=== PATIENT | male | born 1970 | race Caucasian/White ===

== ENCOUNTER → 2024-08-02 | Outpatient (CLI) | payer BC ==
[2024-08-02 14:20] VITALS: BP 171/102; PULSE 80; RESP 16; TEMP 98
--- NOTE | 2024-08-02 14:59 | P.SLEEP ---
History of Present Illness H&P Date: 08/02/24 Patient is a 53-year-old morbidly obese male patient is coming in for sleep apnea evaluation. The patient has works swing shifts for a total of 28 years working at the [employer]. This has disrupted his sleep pattern and the patient reports to have poor sleep quality over many years. 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 He goes to bed at 9 PM and wakes at 4:15 AM in the morning. On weekends, he sleeps till 8 AM in the morning. His has noted very loud snoring and he has also been noted to pauses breathing during sleep. The patient states that she wakes up tired and he feels fatigued and sleepy throu ghout the day. His current [place] score is at 10. No history of any motor vehicle accidents because of feeling drowsy or sleepy. Over the past 10 years, he has gained around 30 pounds. He has taken trazodone for many years for sleep induction and this medication has helped him quite a bit while he was doing swing shifts. He has maintained himself on trazodone. He has hypertension, acid reflux, chronic back pain and hyperlipidemia and chronic allergic rhinitis. He is a mouth breather. He has dry mouth in the morning when he wakes up. No sleep paralysis. No hallucinations. No cataplexy. No restlessness in lower extremities. No grinding of the teeth. No nocturnal chest pain or heartburn. He wakes up once or twice in the middle of the night to go to the bathroom. At other times, he wakes up for no obvious reasons. He drinks 12 to 20 ounce coffee during the day. Social alcohol drinker. Occasionally smokes marijuana. He is a non-smoker. No history of any cardiovascular disease. However, his father has at a young age from cardiac complications. His blood pressure today was noted to be elevated. No headaches. No previous history of stroke. No congestion heart failure. No atrial fibrillation. No chronic lung disease. Review of Systems Constitutional: Reports daytime sleepiness, Reports fatigue, Reports weight gain Eyes: denies as per HPI, denies blurred vision, denies bulging eye, denies decreased vision, denies diplopia, denies discharge, denies dry eye, denies irritation, denies itching, denies pain, denies photophobia, denies loss of peripheral vision, denies loss of vision, denies tunnel vision/blind spots Ears: deny: decreased hearing, ear discharge, earache, tinnitus Ears, nose, mouth and throat: Reports as per HPI Breasts: absent: as per HPI, gynecomastia Cardiovascular: Reports as per HPI Respiratory: Reports snoring Gastrointestinal: Reports as per HPI Genitourinary: Reports as per HPI Musculoskeletal: Reports low back pain Musculoskeletal: absent: ankle pain, ankle stiffness, ankle swelling, as per HPI, elbow pain, elbow stiffness, elbow swelling, foot pain, foot stiffness, foot swelling, hand pain, hand stiffness, hand swelling, hip pain, hip stiffness, hip swelling, knee pain, knee stiffness, knee swelling, shoulder pain, shoulder stiffness, shoulder swelling, wrist pain, wrist stiffness, wrist swelling Integumentary: Reports as per HPI Neurological: Reports as per HPI Psychiatric: Reports change in sleep habits, Reports hypersomnia, Reports sleep disturbances Endocrine: Reports as per HPI, Reports fatigue Hematologic/Lymphatic: Reports as per HPI Allergic/Immunologic: Reports allergic rhinitis Past Medical History Past Medical History: GERD/Reflux, Hyperlipidemia, Hypertension History of Any Multi-Drug Resistant Organisms: None Reported Past Anesthesia/Blood Transfusion Reactions: No Reported Reaction Past Psychological History: No Psychological Hx Reported Smoking Status: Never smoker Past Alcohol Use History: Occasional Past Drug Use History: Marijuana - Past Family History Mother Family Medical History: Hyperlipidemia, Hypertension Father Family Medical History: Coronary Artery Disease (CAD) Brother(s) Family Medical History: Hyperlipidemia Sister(s) Family Medical History: Hyperlipidemia Medications and Allergies Home Medications Medication Instructions Recorded Confirmed Type Atorvastatin [Lipitor] 10 mg PO DAILY 08/02/24 08/02/24 History Omeprazole 20 mg PO DAILY 08/02/24 08/02/24 History traZODone HCL 100 mg PO HS 08/02/24 08/02/24 History Physical Exam Vitals: Vital Signs Temp Pulse Resp BP Pulse Ox 08/02/24 14:19 98 F 80 16 171/102 97 Intake and Output 08/01/24 08/02/24 08/02/24 22:59 06:59 14:59 Other: Weight 138.346 kg The patient appeared well nourished and normally developed. Vital signs as documented. Patient is obese with a BMI of 39.7. Neck size is 17.5 inches. Current [place] score at that time. Head exam is unremarkable. No scleral icterus or corneal arcus noted. Neck is without jugular venous distension, thyromegaly, or carotid bruits. Carotid upstrokes are brisk bilaterally. Mallampati class IV with crowding of the posterior pharynx. No overbite. Lungs are clear to auscultation and percussion. Cardiac exam reveals the PMI to be normally sized and situated. Rhythm is regular. First and second heart sounds normal. No murmurs, rubs or gallops. Abdominal exam reveals normal bowel sounds, no masses, no organomegaly and no aortic enlargement. Extremities are nonedematous and both femoral and pedal pulses are normal. Examination of the skin revealed no evidence of significant rashes, suspicious appearing nevi or other concerning lesions. Neurologically, the patient is awake and alert and the patient does not have any focal neurological deficit. Cranial nerves are essentially intact. Assessment and Plan Plan: Loud snoring along with symptoms of chronic fatigue and sleepiness with an [place] score of 10. High clinical suspicion for obstructive sleep apnea. The patient reports poor sleep quality over the years. 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 Currently, he is working day shifts. Despite in this job change, he continues to have poor sleep quality and ongoing daytime fatigue and sleepiness. Chronic fatigue and sleepiness Sleep fragmentation Mallampati class IV with a neck size of 17.5 inches Obesity with a BMI of 39.7 Hypertension Hyperlipidemia Allergic rhinitis Chronic back pain Recreational marijuana smoker Plan Maintain regular sleep schedule Extend number of hours of sleep to an average of 7 to 8 hours/day. Recommend sleeping on the side with the head of the bed elevated Avoid alcohol drinking at least 3 hours prior to going to bed Weight loss Blood pressure management through primary care Polysomnography to rule out underlying obstructive sleep apnea and treat accordingly. Sleep Note - Sleep Data ESS Total: 10 - Sleep Note Sleep Note: Temperature: 98 F Pulse Rate: 80 Respiratory Rate: 16 Blood Pressure: 171/102 SpO2: 97 Height: 6 ft 1.5 in Weight: 138.346 kg BMI: Neck Circumference: 17.7
== END ==
LOC: 3 N SLEEP 13:29
PROVIDERS: ATTEND Internal Medicine Critical Care Medicine
DX: R06.83 Snoring (principal); R53.82 Chronic fatigue, unspecified; G89.29 Other chronic pain; E66.01 Morbid (severe) obesity due to excess calories; I10 Essential (primary) hypertension; E78.5 Hyperlipidemia, unspecified; J30.9 Allergic rhinitis, unspecified; M54.9 Dorsalgia, unspecified; Z68.39 Body mass index [BMI] 39.0-39.9, adult
CPT/HCPCS: 99202

== ENCOUNTER → 2024-09-07 | Outpatient (CLI) | payer BC ==
--- NOTE | 2024-09-12 21:29 | P.PCN ---
Date of Procedure: 09/07/24 Operative Findings: Home sleep study report History Patient is a 53-year-old morbidly obese male patient is coming in for sleep apnea evaluation. The patient has works swing shifts for a total of 28 years working at the [employer]. This has disrupted his sleep pattern and the patient reports to have poor sleep quality over many years. 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 He goes to bed at 9 PM and wakes at 4:15 AM in the morning. On weekends, he sleeps till 8 AM in the morning. His has noted very loud snoring and he has also been noted to pauses breathing during sleep. The patient states that she wakes up tired and he feels fatigued and sleepy throughout the day. His current [place] score is at 10. No history of any motor vehicle accidents because of feeling drowsy or sleepy. Over the past 10 years, he has gained around 30 pounds. He has taken trazodone for many years for sleep induction and this medication has helped him quite a bit while he was doing swing shifts. He has maintained himself on trazodone. He has hypertension, acid reflux, chronic back pain and hyperlipidemia and chronic allergic rhinitis. He is a mouth breather. He has dry mouth in the morning when he wakes up. No sleep paralysis. No hallucinations. No cataplexy. No restlessness in lower extremities. No grinding of the teeth. No nocturnal chest pain or heartburn. He wakes up once or twice in the middle of the night to go to the bathroom. At other times, he wakes up for no obvious reasons. He drinks 12 to 20 ounce coffee during the day. Social alcohol drinker. Occasionally smokes marijuana. He is a non-smoker. No history of any cardiovascular disease. However, his father has at a young age from cardiac complications. His blood pressure today was noted to be elevated. No headaches. No previous history of stroke. No congestion heart failure. No atrial fibrillation. No chronic lung disease. Physical findings Body mass index of 39.7. Upper scores of 7. Weight is 305 pounds and height is 6 feet and 1 inch. Technical description This is a type III home sleep study. The [employer] system was used to complete his home sleep study. The total recording duration was 8 hours and 58 minutes. The study started 9:19 PM and ended that 6:17 AM. There was a total of 8 hours and 46 minutes of flow monitoring and 8 hours and 47 minutes of oxygen saturation monitoring. Results Respiratory analysis showed a total of 114 obstructive apneas and 196 obstructive hypopneas. The resulting AHI was 35.3 consistent with severe obstructive sleep apnea. Oxygenation analysis The patient baseline pulse ox was 95%, average pulse ox was 93% during sleep with a minimum pulse ox of 77% and the patient spent approximately 20 minutes of sleep time below pulse ox of 89%. Cardiac analysis Average heart rate was 61 with a minimum heart rate of 42 and a maximum heart rate of 107 Assessment Severe obstructive sleep apnea with an AHI of 35.3 Mild nocturnal oxygen desaturation with a minimum pulse ox of 77% Loud snoring along with symptoms of chronic fatigue and sleepiness with an [place] score of 10. The patient reports poor sleep quality over the years. 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 Currently, he is working day shifts. Despite in this job change, he continues to have poor sleep quality and ongoing daytime fatigue and sleepiness. Chronic fatigue and sleepiness, [place] score of 7 Sleep fragmentation Mallampati class IV with a neck size of 17.5 inches Obesity with a BMI of 39.7 Hypertension Hyperlipidemia Allergic rhinitis Chronic back pain Recreational marijuana smoker Plan Patient has severe obstructive sleep apnea. Recommend CPAP therapy. The patient was asked to come into the sleep center to undergo CPAP titration. Maintain regular sleep schedule Extend number of hours of sleep to an average of 7 to 8 hours/day. Recommend sleeping on the side with the head of the bed elevated Avoid alcohol drinking at least 3 hours prior to going to bed Weight loss Blood pressure management through primary care Polysomnography with CPAP therapy is to follow.
== END ==
LOC: 3 N SLEEP 16:50
PROVIDERS: ATTEND Internal Medicine Critical Care Medicine
DX: G47.33 Obstructive sleep apnea (adult) (pediatric) (principal); E66.01 Morbid (severe) obesity due to excess calories; Z68.39 Body mass index [BMI] 39.0-39.9, adult; I10 Essential (primary) hypertension; E78.5 Hyperlipidemia, unspecified; J30.9 Allergic rhinitis, unspecified; G89.29 Other chronic pain; M54.9 Dorsalgia, unspecified; F12.90 Cannabis use, unspecified, uncomplicated